=== PATIENT | female | born 1995 | race Caucasian/White ===

== ENCOUNTER 2018-06-11 14:43 | Emergency (ER) | payer MEDICAID ==
[~2018-06-11] VITALS: Ht 167.6 cm; Wt 118.2 kg
[~2018-06-11 14:43] MED LIST: CELEXA10 MG PO; PERCOCET 5-3251 TAB PO; RHOGAM PLU300 MCG/SY IM
[2018-06-11 14:48] VITALS: Ht 167.6 cm; Wt 118.2 kg
[2018-06-11] MEDS ORDERED: AMOXICILLIN500 M1 PO (17:40)
[2018-06-11] MEDS ORDERED: PHENERGAN DM SYR5 ML PO (17:40)
[2018-06-11 18:35] VITALS: BP 122/74
== END 2018-06-11 18:36 | disposition home or self-care (01) ==
LOC: D.ER 14:43
DX: J06.9 Acute upper respiratory infection, unspecified (principal); J40 Bronchitis, not specified as acute or chronic; F17.200 Nicotine dependence, unspecified, uncomplicated; R05 Cough; M79.18 Myalgia, other site

== ENCOUNTER 2018-08-15 10:33 | Emergency (ER) | payer MEDICAID ==
[~2018-08-15] VITALS: Ht 167.6 cm; Wt 122.7 kg
[~2018-08-15 10:33] MED LIST changes: +AMOXICILLIN500 M1 PO; +PHENERGAN DM SYR5 ML PO
[2018-08-15 10:39] VITALS: BP 120/62; Ht 167.6 cm; Wt 122.7 kg
[2018-08-15] MEDS ORDERED: ALBUTEROL SULF8.5 GM INH (14:16)
[2018-08-15] MEDS ORDERED: TAMIFLU75 MG PO (14:16)
== END 2018-08-15 14:46 | disposition home or self-care (01) ==
LOC: D.ER 10:33
DX: R50.9 Fever, unspecified (principal); M79.18 Myalgia, other site; R05 Cough